=== PATIENT | female | born 1995 | race Caucasian/White ===

== ENCOUNTER 2018-01-18 18:38 | Emergency (ER) | payer OTHER ==
[~2018-01-18] VITALS: Ht 152.4 cm; Wt 37.2 kg
[~2018-01-18 18:38] MED LIST: [UNRECOGNIZED DRUG - OTHER]; dulera
[2018-01-18 18:39] VITALS: BP_SYST 133
[2018-01-18] MEDS ORDERED: NS 100 ML IV ONE (20:30)
[2018-01-18 20:58] VITALS: BP_SYST 133
== END 2018-01-18 20:58 | disposition home or self-care (01) ==
LOC: SED 18:38
DX: S05.02XA Injury of conjunctiva and corneal abrasion without foreign body, left eye, initial encounter (principal); J45.909 Unspecified asthma, uncomplicated; F90.9 Attention-deficit hyperactivity disorder, unspecified type; Z90.89 Acquired absence of other organs; X58.XXXA Exposure to other specified factors, initial encounter; Y93.9 Activity, unspecified; Y92.89 Other specified places as the place of occurrence of the external cause; Y99.8 Other external cause status
CPT/HCPCS: 99283